=== PATIENT | female | born 1980 ===

== ENCOUNTER 2018-07-04 22:00 | Emergency (ER) | payer SELFPAY ==
[2018-07-04 22:33] VITALS: O2SAT 99
[2018-07-05 00:03] LABS: BASO % 0.4 % (0.0-2.0); EOS % 0.1 % (0.0-4.0); HEMOGLOBIN 9.1 g/dL (12.0-16.0); LYMPH # 1.6 K/uL (1.0-4.3); LYMPH % 13.7 % (20.0-40.0); MEAN CORPUSCULAR HEMOGLOBIN 22.5 pg (27.0-31.0); MEAN CORPUSCULAR HGB CONC 31.7 g/dL (33.0-37.0); MEAN PLATELET VOLUME 8.7 fl (7.2-11.7); MONO # 1.7 K/uL (0.0-0.8); MONO % 14.4 % (0.0-10.0); NEUT # 8.4 K/uL (1.8-7.0); NEUT % 71.4 % (50.0-75.0); RBC 4.02 Mil/uL (3.80-5.20); RED CELL DISTRIBUTION WIDTH 18.1 % (11.5-14.5); WHITE BLOOD COUNT 11.7 K/uL (4.8-10.8)
--- NOTE | 2018-07-05 00:07 | ED PDOC ---
HPI: Abdomen Time Seen by Provider: 07/04/18 23:02 Chief Complaint (Nursing): Abdominal Pain Chief Complaint (Provider): Fever, abdominal pain, malaise History Per: Patient History/Exam Limitations: no limitations Onset/Duration Of Symptoms: Days Current Symptoms Are (Timing): Still Present Location Of Pain/Discomfort: Diffuse Associated Symptoms: Fever, Chills, Urinary Symptoms. denies: Nausea, Vomiting , Diarrhea Additional History Per: Patient Additional Complaint(s): 38yo female, no past medical history, comes to ER with complaints of fever, chills, abdominal pain and bodyaches x 5 days. Patient states she has associated dysuria and back pain as well. She has taken Tylenol with mild improvement; denies any nausea, vomiting, or diarrhea. No other medical complaints. Past Medical History Reviewed: Historical Data, Nursing Documentation, Vital Signs Vital Signs: Last Vital Signs Temp 99.6 F 07/04/18 22:28 Pulse 91 H 07/04/18 22:28 Resp 18 07/04/18 22:28 BP 110/72 07/04/18 22:28 Pulse Ox 99 07/05/18 00:08 - Medical History PMH: No Chronic Diseases - Surgical History Surgical History: - Family History Family History: States: No Known Family Hx - Home Medications Home Medications: Ambulatory Orders Medication Instructions Recorded Ciprofloxacin/Ciprofloxa HCl 500 mg PO Q12 #14 tab 07/05/18 [Ciprofloxacin] Phenazopyridine HCl [Pyridium] 100 mg PO TID #6 tab 07/05/18 - Allergies Allergies/Adverse Reactions: Allergies Allergy/AdvReac Type Severity Reaction Status Date / Time No Known Allergies Allergy Verified 07/04/18 22:25 Review of Systems ROS Statement: Except As Marked, All Systems Reviewed And Found Negative Constitutional: Positive for: Fever, Chills, Weakness Gastrointestinal: Positive for: Abdominal Pain. Negative for: Nausea, Vomiting , Diarrhea Genitourinary Female: Positive for: Dysuria Musculoskeletal: Positive for: Back Pain Physical Exam - Reviewed Nursing Documentation Reviewed: Yes Vital Signs Reviewed: Yes - Physical Exam Appears: Positive for: Non-toxic, Uncomfortable Head Exam: Positive for: ATRAUMATIC, NORMAL INSPECTION, NORMOCEPHALIC Skin: Positive for: Normal Color Eye Exam: Positive for: Normal appearance Neck: Positive for: Supple Cardiovascular/Chest: Positive for: Regular Rate, Rhythm Respiratory: Positive for: Normal Breath Sounds Gastrointestinal/Abdominal: Positive for: Soft, Tenderness (suprapubic). Negative for: Mass, Distended, Guarding, Rebound Back: Positive for: L CVA Tenderness, R CVA Tenderness Extremity: Positive for: Normal ROM Neurologic/Psych: Positive for: Alert, Oriented. Negative for: Motor/Sensory Deficits - Laboratory Results Result Diagrams: 07/04/18 23:30 07/04/18 23:30 - ECG O2 Sat by Pulse Oximetry: 99 (RA) Pulse Ox Interpretation: Normal Medical Decision Making Medical Decision Making: Impression: 38yo female, with urinary symptoms, fever Plan: * UDip * Toradol 15mg IVP * Labs 2340 UDip reviewed and patient noted to have a UTI. IV Rocephin initiated 0051 On reassessment, patient reports feeling much better. Labs and urine reviewed, consistent with UTI. Patient stable for discharge home. Diagnosis: Pyelonephritis Scribe Attestation: Documented by Tameka Elias, acting as a scribe for Richard Gregory MD. Provider Scribe Attestation: All medical record entries made by the Scribe were at my direction and personally dictated by me. I have reviewed the chart and agree that the record accurately reflects my personal performance of the history, physical exam, medical decision making, and the department course for this patient. I have also personally directed, reviewed, and agree with the discharge instructions and disposition. Disposition - Clinical Impression Clinical Impression: Pyelonephritis - Disposition Disposition: Routine/Home Disposition Time: 00:52 Condition: STABLE Prescriptions: Ciprofloxacin/Ciprofloxa HCl [Ciprofloxacin] 500 mg PO Q12 #14 tab Phenazopyridine HCl [Pyridium] 100 mg PO TID #6 tab Instructions: Urinary Tract Infections in Adults Forms: [employer] ([place]) Print Language: UPPER SORBIAN
[2018-07-05 00:08] LABS: SQUAMOUS EPITHIAL 1 /hpf (0-5); URINE BACTERIA OCC (<OCC); URINE BILIRUBIN NEGATIVE (NEGATIVE); URINE BLOOD SMALL (NEGATIVE); URINE CLARITY SLIGHTY-CLOUDY (Clear); URINE COLOR STRAW (YELLOW); URINE GLUCOSE (UA) NEG (Normal); URINE LEUKOCYTE ESTERASE LARGE Leu/uL (Negative); URINE PROTEIN NEGATIVE (NEGATIVE); URINE UROBILINOGEN 0.2-1.0 mg/dL (0.2-1.0)
[2018-07-05 00:12] LABS: BLOOD UREA NITROGEN 7 mg/dl (7-17); CALCIUM 9.2 mg/dL (8.4-10.2); GFR NON-AFRICAN AMERICAN > 60
[2018-07-05] MEDS ORDERED: cefTRIAXone (Rocephin) 1 gm Inj ONE (00:23)
[2018-07-05 01:36] VITALS: BP 110/61; PULSE 87; RESP 17; TEMP 98.4
== END 2018-07-05 01:41 | disposition home or self-care (01) ==
LOC: H.ER 22:00
DX: N12 Tubulo-interstitial nephritis, not specified as acute or chronic (principal)
CPT/HCPCS: 80048; 81003; 81025; 83605; 85025; 87040; 96365; 99283; J0696; J1885